=== PATIENT | female | born 1940 | race Caucasian/White ===

== ENCOUNTER 2021-08-19 10:35 | Emergency (ER) | payer MEDICARE ==
[2021-08-19 12:13] LABS: BASOPHIL 0.1 % (0-2); EOSINOPHIL 0 % (0-7); HCT 29.6 % (37.0-47.0); HGB 9.8 g/dl (12.5-16.0); LYMPHOCYTE 2.5 % (15-48); MCH 31.5 pg (25.0-31.0); MCHC 33.1 g/dL (32.0-36.0); MCV 95.2 fL (78.0-100.0); MONOCYTE 8.2 % (0-12); NEUTROPHIL 88.6 % (41-80); NRBC 0; PLT 327 K/uL (150-400); RBC 3.11 M/uL (4.20-5.40); RDW 13.2 % (11.5-14.0); WBC 12.6 K/uL (4.0-10.5)
[2021-08-19 12:23] LABS: ALBUMIN 2.9 g/dL (3.4-5.0); BILIRUBIN - TOTAL 0.5 mg/dL (0.2-1.0); BUN/CREAT RATIO (CALC) 34.1 RATIO; CREATININE 0.82 mg/dL (0.51-0.95); GLOBULIN (CALCULATION) 3.6 g/dL; POTASSIUM 3.8 mmol/L (3.5-5.1); TOTAL PROTEIN 6.5 g/dL (6.4-8.2)
[2021-08-19] MEDS ORDERED: KETOROLAC TROME10 MG PO (13:03)
== END 2021-08-19 13:17 | disposition home or self-care (01) ==
LOC: FER 10:35
PROVIDERS: Emergency Medicine
DX: C79.51 Secondary malignant neoplasm of bone (principal)
CPT/HCPCS: 36415; 71045; 80053; 85025; J1885